=== PATIENT | female | born 1995 | race Caucasian/White ===

== ENCOUNTER 2022-09-07 17:56 | Emergency (ER) | payer BC, MEDICAID, OTHER ==
[2022-09-07] MEDS ORDERED: Iopamidol 755 Mg/ML 100 ML Bottle IV ONE (18:43)
== END 2022-09-07 20:00 | disposition home or self-care (01) ==
LOC: FB.ED 17:56
DX: R07.89 Other chest pain (principal); F17.210 Nicotine dependence, cigarettes, uncomplicated
CPT/HCPCS: 71275; 99285; Q9967

== ENCOUNTER 2024-05-11 06:19 | Emergency (ER) | payer BC, OTHER ==
[2024-05-11] MEDS: Diazepam 5 MG Tab PO ONE (07:31)
[2024-05-11] MEDS: Promethazine 25 MG/ML SDV IM ONE (07:31)
[2024-05-11] MEDS: HYDROmorphone 2 MG/ML SDV IM ONE (07:31)
[2024-05-11 07:41] LABS: BILIRUBIN,URINE NEGATIVE (NEGATIVE); GLUCOSE,URINE NORMAL (NORMAL); KETONES,URINE NEGATIVE (NEGATIVE); LEUKOCYTE ESTERASE,URINE SMALL (NEGATIVE); NITRITE,URINE NEGATIVE (NEGATIVE); OCCULT BLOOD,URINE MODERATE (NEGATIVE); PROTEIN,URINE NEGATIVE (NEGATIVE); UROBILINOGEN,URINE 1 mg/dL (NEGATIVE)
[2024-05-11 07:48] LABS: APPEARANCE,URINE SLIGHTLY CLOUDY (CLEAR); BACTERIA,URINE MODERATE (NS); COLOR,URINE YELLOW (YELLOW); RBC,URINE 0-5 (0-5); SQUAMOUS EPITHELIAL CELLS,UR FEW (NS,R,O); WBC,URINE 0-5 (0-5)
== END 2024-05-11 08:35 | disposition home or self-care (01) ==
LOC: FB.ED 06:19
DX: M54.41 Lumbago with sciatica, right side (principal); M62.830 Muscle spasm of back
CPT/HCPCS: 81001; 96372; 99284; A9270-GY; J1170; J2550